=== PATIENT | female | born 1995 | race African-American/Black ===

== ENCOUNTER 2016-12-06 13:07 | Emergency (ER) | payer OTHER ==
[2016-12-06 13:18] VITALS: BP 134/85; PULSE 80; TEMP 98.1; BMI 25.8
--- NOTE | 2016-12-06 14:12 | PDOC ---
*Physical Exam - Vital Signs Last Vital Signs Temp Pulse Resp BP Pulse Ox 98.1 F 80 16 134/85 99 12/06/16 13:14 12/06/16 13:14 12/06/16 13:14 12/06/16 13:14 12/06/16 13:14 - Physical Exam General Appearance: Yes: Appropriately Dressed HEENT: negative: TMs Normal, Pharynx Normal, Other (; PE: NOTES HEALING LATERAL ABRASION; SEVERE INJECTION TO CONJUNCTIVA WITH LIMBUS SPARED) Medical Decision Making - Medical Decision Making 12/06/16 14:07 PT CAME HERE INSTEAD OF EYE MD APPT; CAN SEE EYE MD IN [place] TODAY; WILL CONTINUE PRESENT MEDS AN *DC/Admit/Observation/Transfer Diagnosis at time of Disposition: Corneal abrasion due to contact lens Qualifiers: Laterality: left Qualified Code(s): H18.822 - Corneal disorder due to contact lens, left eye - Discharge Dispostion Disposition: HOME Condition at time of disposition: Stable Admit: No - Patient Instructions Additional Instructions: PLEASE SEE EYE MD IN [place] TODAY PLANNED; CONTINUE ANTIBIOTIC DROPS; NO CONTACT LENSES UNTIL CLEARED - Post Discharge Activity Work/School Note: Back to School
== END 2016-12-06 14:37 | disposition home or self-care (01) ==
LOC: JER 13:07
DX: H18.822 Corneal disorder due to contact lens, left eye (principal)
CPT/HCPCS: 99281-25

== ENCOUNTER 2016-12-08 17:35 | Emergency (ER) | payer OTHER ==
[2016-12-08 17:38] VITALS: BP 121/77; PULSE 68; TEMP 98.6; BMI 26.6
--- NOTE | 2016-12-08 18:00 | PDOC ---
History of Present Illness - General Chief Complaint: Eye Problem Stated Complaint: LEFT EYE SWELLING/PAIN Time Seen by Provider: 12/08/16 17:49 - History of Present Illness Initial Comments: 12/08/16 19:11 Patient is a 21-year-old female presenting to the ED today complaining of left eye pain. Patient states that her pain started 5 days ago on 12/03/2016. At that time she states she was seen in [facility] ER where she was given antibiotic drops. Patient is unsure of her diagnosis at that time. She was then seen again on the for increasing pain. She was given Cipro drops at that time for bacterial conjunctivitis. On the she then presented to [facility] with pain in the eye where she was diagnosed with the potential corneal abrasion. She was told to continue her drops and go to the eye doctor. She went to the eye doctor yesterday on the where she was diagnosed with viral conjunctivitis and no evidence of corneal abrasion. She was told to stop her antibiotic drops and to use her teardrops. The patient complains of swelling of her left eye as well as pain with extraocular movements. Patient denies any visual changes or trauma to the eye. She complains the pain is about a 6 out of 10. She did not call or return to the eye doctor today after experiencing increasing symptoms. She presents to [facility] for further evaluation. Patient is afebrile denies fevers chills rhinorrhea or ear pain sore throat chest pain palpitations shortness of breath nausea vomiting or diarrhea. Past History - Past Medical History Allergies/Adverse Reactions: Allergies Allergy/AdvReac Type Severity Reaction Status Date / Time No Known Allergies Allergy Verified 12/06/16 13:13 Home Medications: Ambulatory Orders Amoxicillin/Potassium Clav [Amox-Clav 875-125 mg Tablet] 875 mg PO ASDIR Ciprofloxacin 0.3% Eye Drops [Ciloxan 0.3% Eye Drops -] 2 drop OS Q4H 12/08/16 Other medical history: DENIES - Immunization History Immunization Up to Date: Yes - Psycho/Social/Smoking Cessation Hx Anxiety: No Suicidal Ideation: No Smoking History: Never smoked Have you smoked in the past 12 months: Yes Number of Cigarettes Smoked Daily: 2 'Breaking Loose' booklet given: 04/18/16 Hx Alcohol Use: No Drug/Substance Use Hx: No Substance Use Type: None *Physical Exam - Vital Signs Last Vital Signs Temp Pulse Resp BP Pulse Ox 98.6 F 68 18 121/77 100 12/08/16 17:36 12/08/16 17:36 12/08/16 17:36 12/08/16 17:36 12/08/16 17:36 - Physical Exam Comments: 12/08/16 19:11 GENERAL: Well developed, well nourished. Awake and alert. No acute distress. HEENT: Normocephalic, atraumatic. PERRLA, EOMI. Left eye conjunctivitis, no discharge noted from the eye. Fluorescein stain was done. Tetracaine drops were placed first to allow for numbing of the eye. The fluorescein strip was then applied to the bottom and upper lid. Upon exam with blue light, there is no evidence of corneal abrasion. Sclera are non-icteric. Moist mucous membranes. Oropharynx is clear. NECK: Supple. Full ROM. No JVD. Carotid pulses 2+ and symmetric, without bruits. No thyromegaly. No lymphadenopathy. CARDIOVASCULAR: Regular rate and rhythm. No murmurs, rubs, or gallops. Distal pulses are 2+ and symmetric. PULMONARY: No evidence of respiratory distress. Lungs clear to auscultation bilaterally. No wheezing, rales or rhonchi. ABDOMINAL: Soft. Non-tender. Non-distended. No rebound or guarding. No organomegaly. Normoactive bowel sounds. MUSCULOSKELETAL Normal range of motion at all joints. No bony deformities or tenderness. No CVA tenderness. EXTREMITIES: No cyanosis. No clubbing. No edema. No calf tenderness. SKIN: Warm and dry. Normal capillary refill. No rashes. No jaundice. NEUROLOGICAL: Alert, awake, appropriate. Cranial nerves 2-12 intact. No deficits to light touch and temperature in face, upper extremities and lower extremities. No motor deficits in the in face, upper extremities and lower extremities. Normoreflexic in the upper and lower extremities. Normal speech. Toes are down- going bilaterally. Gait is normal without ataxia. PSYCHIATRIC: Cooperative. Good eye contact. Appropriate mood and affect. Medical Decision Making - Medical Decision Making 12/08/16 19:13 Patient is a 21-year-old female with no past medical history complaining of left eye pain. Fluorescein stain shows no evidence of a corneal abrasion at this time. Visual acuity is intact at 20/20 OD, OS, both eyes. Extraocular motions are intact although patient reports pain with movement. There is some moderate swelling of her L and R eye. Less likely orbital cellulitis given the fact she is afebrile with no discharge and the swelling is bilateral. We will recommend she follows up with her eye doctor within 48 hours. Will give Motrin now. Explained that there is no abrasion of her eye or bacterial infection. This appears to be a viral infection and she should resume her artifical tears. Instructed pt. to stop all antibiotic use. Also instructed pt to use Motrin for pain and to use warm compresses in the morning to help with eye crust. Will discharge home at this time. *DC/Admit/Observation/Transfer Diagnosis at time of Disposition: Viral conjunctivitis of left eye - Discharge Dispostion Disposition: HOME Condition at time of disposition: Stable Admit: No - Referrals Referrals: Rod Bass MD [Staff Physician] - - Patient Instructions Printed Discharge Instructions: DI for Red Eye Additional Instructions: You have a viral eye infection in your left eye. Your eye staining today showed no evidence of bacterial infection. Continue to use the artificial tears for comfort. Stop all antibiotic use at this time. You should avoid wearing contacts until the redness has cleared. Follow up with your eye doctor on Sunday. You may take Motrin for the eye pain. Return to the ED if you have sudden visual changes, loss of vision, or worsening pain in the eye.
[2016-12-08] MEDS ORDERED: FLUORESCEIN NA 1 EA STRIP ONE (18:24)
[2016-12-08] MEDS ORDERED: TETRACAINE 0.5% OPHTH SOLN 2 ML BOTTLE ONE (18:24)
[2016-12-08] MEDS ORDERED: diphenhydrAMINE HCL 25 MG CAPSULE (FP) PO ONE ×2 (19:17→19:19)
[2016-12-08] MEDS ORDERED: IBUPROFEN 600 MG TABLET (FP) PO ONE ×2 (19:23→19:24)
== END 2016-12-08 19:33 | disposition home or self-care (01) ==
LOC: FER 17:35
DX: B30.9 Viral conjunctivitis, unspecified (principal); B97.89 Other viral agents as the cause of diseases classified elsewhere; Z72.0 Tobacco use
CPT/HCPCS: 99282-25

== ENCOUNTER 2017-01-04 15:00 | Emergency (ER) | payer OTHER ==
[2017-01-04 15:10] VITALS: BP 122/63; PULSE 83; TEMP 98.5; BMI 25.8
--- NOTE | 2017-01-04 15:26 | PDOC ---
History of Present Illness <Sarai Worthington - Last Filed: 01/04/17 15:59> - History of Present Illness Initial Comments: 01/04/17 15:44 - History of Present Illness Initial Comments: 01/04/17 15:28 The patient is a 21 year old female with no past medical hx who presents to the ED complaining of right wrist and hand pain since yesterday morning. The patient reports she punched a metal wall one time with her right fist and started to have pain immediately after. Her pain is localized to the the lateral aspect of her right wrist and the 4th and 5th digit of her right hand. She reports she went to work yesterday and her pain began to worsen. She notes her mother gave her Advil, which did not relieve her pain. She states she was able to sleep last night because her mother gave her sleeping pills. The patient states the pain progressively worsened today and she began to have swelling to her hand and wrist. She states she is having difficulty getting her ring off of her finger secondary to the swelling. The patient denies radiation of pain, numbness, or tingling and has no further complaints at this time. <Sarai Worthington - Last Filed: 01/04/17 15:30> <Betsy Melo - Last Filed: 01/07/17 09:15> - General Chief Complaint: Injury Stated Complaint: RT WRIST, RT HAND PAIN, SWELLING Time Seen by Provider: 01/04/17 15:21 Past History <Sarai Worthington - Last Filed: 01/04/17 15:59> - Past Medical History Other medical history: DENIES - Immunization History Immunization Up to Date: Yes - Psycho/Social/Smoking Cessation Hx Anxiety: No Suicidal Ideation: No Smoking History: Never smoked Have you smoked in the past 12 months: No Number of Cigarettes Smoked Daily: 2 Information on smoking cessation initiated: No 'Breaking Loose' booklet given: 04/18/16 Hx Alcohol Use: No Drug/Substance Use Hx: No Substance Use Type: None <Betsy Melo - Last Filed: 01/07/17 09:15> - Past Medical History Allergies/Adverse Reactions: Allergies Allergy/AdvReac Type Severity Reaction Status Date / Time No Known Allergies Allergy Verified 01/04/17 15:05 Home Medications: Ambulatory Orders NK [No Known Home Medication] 01/04/17 Review of Systems - Review of Systems Able to Perform ROS?: Yes Comments:: 01/04/17 15:29 Remainder of the review of systems is negative - HPI review of systems is as per history of present illness and otherwise negative <Sarai Worthington - Last Filed: 01/04/17 15:59> *Physical Exam - Vital Signs Last Vital Signs Temp Pulse Resp BP Pulse Ox 98.5 F 83 18 122/63 99 01/04/17 15:00 01/04/17 15:00 01/04/17 15:00 01/04/17 15:00 01/04/17 15:00 <Sarai Worthington - Last Filed: 01/04/17 15:59> - Vital Signs Last Vital Signs Temp Pulse Resp BP Pulse Ox 98.5 F 83 18 122/63 99 01/04/17 15:00 01/04/17 15:00 01/04/17 15:00 01/04/17 15:00 01/04/17 15:00 - Physical Exam Comments: 01/04/17 15:44 Vital Signs Last Vital Signs Temp Pulse Resp BP Pulse Ox 98.5 F 83 18 122/63 99 01/04/17 15:00 01/04/17 15:00 01/04/17 15:00 01/04/17 15:00 01/04/17 15:00 - Physical Exam Comments: 01/04/17 15:29 GENERAL: The patient is awake, alert, and answering questions, in no respiratory distress, and ambulatory w/o diff HEAD: Normal with no signs of trauma. EXTREMITIES: +Tenderness to the right 4th and 5th metacarpal, tenderness to the right lateral wrist. No cyanosis. All fingers are warm with intact sensation, patient's able to make a fist and open her hand completely Radial pulses intact There is passive full range of motion of the wrist, with only some tenderness with ulnar deviation There is no tenderness on the first through third metacarpals All fingers are warm with intact sensation and good capillary refill No bruising is seen NEUROLOGICAL: Alert and ambulatory and answering questions SKIN: Warm, Dry, <Sarai Worthington - Last Filed: 01/04/17 15:29> <Betsy Melo - Last Filed: 01/07/17 09:15> Medical Decision Making - Medical Decision Making 01/04/17 17:27 Right wrist and hand series as read by me-no fracture seen Impression-right hand contusion <Betsy Melo - Last Filed: 01/07/17 09:15> *DC/Admit/Observation/Transfer - Attestations Scribe Attestion: 01/04/17 15:29 Documentation prepared by Sarai Worthington, acting as medical apparatus model maker for Betsy Melo MD/DO. <Sarai Worthington - Last Filed: 01/04/17 15:59> <Betsy Melo - Last Filed: 01/07/17 09:15> Diagnosis at time of Disposition: Contusion of right hand, Sprain of right hand - Discharge Dispostion Disposition: HOME Condition at time of disposition: Stable - Patient Instructions Additional Instructions: Ice packs off and on for the next 24 hours, elevate and rest Tylenol or Motrin for discomfort The x-ray reading is a preliminary reading, if there is any change when the radiologist reads the x-rays you will be called Followup with your primary care physician in 24-48 hours Return immediately if you worsen in any way - Post Discharge Activity Work/School Note: Back to Work
== END 2017-01-04 17:35 | disposition home or self-care (01) ==
LOC: FER 15:00
DX: S63.91XA Sprain of unspecified part of right wrist and hand, initial encounter (principal); S60.221A Contusion of right hand, initial encounter; W22.01XA Walked into wall, initial encounter; Y93.9 Activity, unspecified; Y92.9 Unspecified place or not applicable
CPT/HCPCS: 73110-TC-RT; 73130-TC-RT; 99282-25

== ENCOUNTER 2017-07-27 13:03 | Emergency (ER) | payer OTHER ==
[2017-07-27 13:12] VITALS: BP 118/75; PULSE 75; TEMP 98.1; BMI 20.1
--- NOTE | 2017-07-27 13:19 | PDOC ---
History of Present Illness - General Chief Complaint: Rash Stated Complaint: RIGHT ARM ITCHY RASH Time Seen by Provider: 07/27/17 13:08 History Source: Patient Exam Limitations: No Limitations - History of Present Illness Initial Comments: 21 yo F presents with itchy rash to R arm, abdomen, and legs for past few days. She applied a bandaid to cover the rash on her arm. Denies any drainage. No fever, chills. No known sick contacts, nobody at home with the same symptoms. Past History - Past Medical History Allergies/Adverse Reactions: Allergies Allergy/AdvReac Type Severity Reaction Status Date / Time No Known Allergies Allergy Verified 07/27/17 13:04 Home Medications: Ambulatory Orders Terbinafine HCl 250 mg PO DAILY #14 tablet 07/27/17 Other medical history: DENIES - Immunization History Immunization Up to Date: Yes - Suicide/Smoking/Psychosocial Hx Smoking History: Never smoked Have you smoked in the past 12 months: No Number of Cigarettes Smoked Daily: 2 'Breaking Loose' booklet given: 04/18/16 Hx Alcohol Use: No Drug/Substance Use Hx: No Substance Use Type: None Review of Systems - Review of Systems Able to Perform ROS?: Yes Comments:: GENERAL/CONSTITUTIONAL: No fever or chills. No weakness. HEAD, EYES, EARS, NOSE AND THROAT: No change in vision. No ear pain or discharge. No sore throat. MUSCULOSKELETAL: No joint or muscle swelling or pain. No neck or back pain. SKIN: +Rash. NEUROLOGIC: No headache, vertigo, loss of consciousness, or change in strength/ sensation. ALLERGIC/IMMUNOLOGIC: No hives or skin allergy. *Physical Exam - Vital Signs Last Vital Signs Temp Pulse Resp BP Pulse Ox 98.1 F 75 16 118/75 100 07/27/17 13:04 07/27/17 13:04 07/27/17 13:04 07/27/17 13:04 07/27/17 13:04 - Physical Exam Comments: GENERAL: Awake, alert, and fully oriented, in no acute distress HEAD: No signs of trauma EYES: PERRLA, EOMI, sclera anicteric, conjunctiva clear ENT: Auricles normal inspection, hearing grossly normal, nares patent, oropharynx clear without exudates. Moist mucosa NECK: Normal ROM, supple, no lymphadenopathy, JVD, or masses EXTREMITIES: Normal range of motion, no edema. No clubbing or cyanosis. No cords , erythema, or tenderness NEUROLOGICAL: Cranial nerves II through XII grossly intact. Normal speech, normal gait SKIN: Warm, Dry, normal turgor. +Scaly round lesion with central clearing to R elbow, volar surface. Multiple similar lesions to the L abdomen. No surrounding erythema. No lesions in the hair. *DC/Admit/Observation/Transfer Diagnosis at time of Disposition: Ringworm - Discharge Dispostion Condition at time of disposition: Stable Admit: No - Prescriptions Prescriptions: Terbinafine HCl 250 mg PO DAILY #14 tablet - Patient Instructions Printed Discharge Instructions: DI for Ringworm, DI for Tinea Corporis
== END 2017-07-27 13:36 | disposition home or self-care (01) ==
LOC: FER 13:03
DX: B35.9 Dermatophytosis, unspecified (principal)
CPT/HCPCS: 84703; 99281-25

== ENCOUNTER 2021-09-27 14:10 | Emergency (ER) | payer OTHER ==
[2021-09-27 14:15] VITALS: BP 133/92; BMI 23.8
[2021-09-27] MEDS ORDERED: ACETAMINOPHEN 325 MG TABLET (FP) ONE (14:27)
[2021-09-27 14:46] VITALS: PULSE 100; TEMP 99.3
[2021-09-27] MEDS ORDERED: ACETAMINOPHEN 325 MG TABLET (FP) PO ONE (15:13)
== END 2021-09-27 15:15 | disposition home or self-care (01) ==
LOC: FER 14:10
DX: H01.133 Eczematous dermatitis of right eye, unspecified eyelid (principal); H01.136 Eczematous dermatitis of left eye, unspecified eyelid
CPT/HCPCS: 99283-25

== ENCOUNTER 2021-10-07 17:58 | Emergency (ER) | payer OTHER ==
[2021-10-07] MEDS ORDERED: IBUPROFEN 400 MG TABLET (FP) PO ONE (18:07)
[2021-10-07 18:42] VITALS: BP 139/76; PULSE 91; TEMP 98.3; BMI 23.1
== END 2021-10-07 19:17 | disposition home or self-care (01) ==
LOC: FER 17:58
DX: S93.401A Sprain of unspecified ligament of right ankle, initial encounter (principal); X50.0XXA Overexertion from strenuous movement or load, initial encounter
CPT/HCPCS: 73610-TC-RT-FY; 73630-TC-RT-FY; 99283-25

== ENCOUNTER 2022-12-09 04:54 | Emergency (ER) | payer OTHER ==
[2022-12-08 22:39] VITALS: BMI 23.1
[2022-12-08 23:06] LABS: HEMATOCRIT 31.2 % (32.4-45.2); HEMOGLOBIN 10.6 G/dL (10.7-15.3); MCH 29.3 pg (25.7-33.7); MCHC 34.1 g/dl (32.0-36.0); MEAN PLT VOLUME 8.2 fl (7.5-11.1); PLATELET COUNT 237.9 10^3/uL (134-434); RBC 3.63 10^6/uL (3.60-5.2); RDW 14.2 % (11.6-15.6); WHITE BLOOD COUNT 6.9 10^3/uL (4.0-10.8)
[2022-12-08 23:16] LABS: PLATELET ESTIMATE ADEQUATE
[2022-12-08 23:18] LABS: INR 1.14 (0.83-1.09); PROTHROMBIN TIME (PATIENT) 13.1 SEC (9.7-13.0)
[2022-12-08 23:24] LABS: ALBUMIN 3.5 g/dl (3.4-5.0); BILIRUBIN,TOTAL 0.4 mg/dl (0.2-1); CALCIUM 8.7 mg/dl (8.5-10); CREATININE 0.7 mg/dl (0.55-1.3); TOT PROT 6.3 g/dl (6.4-8.2)
[2022-12-09 02:30] LABS: BASO % 0.4 % (0-2.0); EOS % 1.6 % (0-4.5); HEMATOCRIT 27.9 % (32.4-45.2); HEMOGLOBIN 9.3 GM/dL (10.7-15.3); LYMPH % 33.5 % (8-40); MCH 28.6 pg (25.7-33.7); MCHC 33.4 g/dl (32.0-36.0); MEAN CELL VOLUME 85.4 fl (80-96); MEAN PLT VOLUME 8.3 fl (7.5-11.1); NEUT % 53.5 % (42.8-82.8); PLATELET COUNT 200 10^3/uL (134-434); RBC 3.27 M/mm3 (3.60-5.2); RDW 13.1 % (11.6-15.6); WHITE BLOOD COUNT 6.1 K/mm3 (4.0-10.0)
[~2022-12-09 04:54] MED LIST: METHYLERGONOVINE MALEATE 0.2 MG/1 ML AMP IM ONE
[2022-12-09 05:52] LABS: BASO % 0.6 % (0-2.0); EOS % 1.2 % (0-4.5); HEMATOCRIT 29.2 % (32.4-45.2); HEMOGLOBIN 9.6 GM/dL (10.7-15.3); LYMPH % 28.5 % (8-40); MCH 28.1 pg (25.7-33.7); MEAN CELL VOLUME 85.4 fl (80-96); MONO % 8.1 % (3.8-10.2); NEUT % 61.6 % (42.8-82.8); PLATELET COUNT 240 10^3/uL (134-434); RBC 3.42 M/mm3 (3.60-5.2); RDW 13.3 % (11.6-15.6); WHITE BLOOD COUNT 8.2 K/mm3 (4.0-10.0)
[2022-12-09 06:27] VITALS: TEMP 98.8
[2022-12-09] MEDS ORDERED: MISOPROSTOL 200 MCG TABLET PO ONE (06:45)
[2022-12-09] MEDS ORDERED: LACTATED RINGERS SOLUTION 1,000 ML/1,000 ML INFUS.BAG IV STA (07:18)
[2022-12-09 10:00] VITALS: BP 127/77; PULSE 99; RESP 18
== END 2022-12-09 12:08 | disposition home or self-care (01) ==
LOC: JER 04:54 → FER 12:08
PROC: 3E023GC Introduction of Other Therapeutic Substance into Muscle, Percutaneous Approach (ICD-10-PCS; principal; 2022-12-09)
PROC: 3E0337Z Introduction of Electrolytic and Water Balance Substance into Peripheral Vein, Percutaneous Approach (ICD-10-PCS; principal; 2022-12-09)
DX: O04.6 Delayed or excessive hemorrhage following (induced) termination of pregnancy (principal)
CPT/HCPCS: 0241U-QW; 36415; 76830-TC; 80053; 84702; 85025; 85027; 85610; 86850; 86900; 86901; 88305-TC; 99284-25